=== PATIENT | female | born 1995 | race Caucasian/White ===

== ENCOUNTER 2021-11-10 14:34 | Emergency (ER) | payer SELFPAY ==
[2021-11-10 16:33] LABS: Mucus,Urine FEW /HPF
--- NOTE | 2021-11-10 16:46 | Emergency Department Report ---
ED Dysuria HPI - HPI Chief Complaint: Abdominal Pain Stated Complaint: KIDNEY AND STOMACH PAIN Time Seen by Provider: 11/10/21 16:31 Duration: 2 Days Location of Discomfort: Urethra (dysuria) Severity: Mild Symptoms: Dysuria: Yes, Frequency: Yes, Suprapubic Pain: Yes, Flank Pain: Yes, Fever: No, Hematuria: Yes, Abdominal Pain: No, Previous UTI's: Yes Other History: 26 YO COMES TO ER WITH LEFT SIDE AND BACK PAIN. FREQUENCY. HX UTI. STATES THIS IS HOW IT ALWAYS IS. NO FEVER. NON TOXIC. NO HX K STONES. PAIN NOT CONSISTENT WITH K STONE. NON ILL. NO N/V. AMBULATORY TO ER. HX IRREGULAR MENSES ? REASON ED Review of Systems ROS: Stated complaint: KIDNEY AND STOMACH PAIN Other details as noted in HPI Comment: All other systems reviewed and negative ED Past Medical Hx - Past Medical History Previous Medical History?: Yes Additional medical history: OBESE - Surgical History Past Surgical History?: Yes Additional Surgical History: tonsilectomy - Family History Family history: no significant - Social History Smoking Status: Never Smoker Substance Use Type: None - Medications Home Medications: Home Medications Medication Instructions Recorded Confirmed Last Taken Type Sulfamethoxazole/Trimethoprim 1 each PO BID #10 tablet 11/10/21 Unknown Rx [Bactrim DS TAB] Dysuria Exam - Exam General: Vital signs noted. No distress. Alert and acting appropriately. Exam: Yes Moist Mucous Membranes, No CVA Tenderness, No Abdominal Tenderness, No Rigidity or Guarding Labs: Lab Results 11/10/21 Range/Units Unknown Urine RBC (Auto) 11.0 (0.0-6.0) /HPF U Epithel Cells (Auto) 8.0 (0-13.0) /HPF ED Course Vital Signs 11/10/21 15:33 Temperature 98.2 F Pulse Rate 74 Respiratory 16 Rate Blood Pressure 122/88 [Left] O2 Sat by Pulse 100 Oximetry ED Medical Decision Making - Medical Decision Making Labs 11/10/21 Unknown Urine Color Yellow Urine Turbidity Cloudy Urine pH 6.0 Ur Specific [place] 1.030 Urine Protein 30 mg/dl Urine Glucose (UA) Negative Urine Ketones Negative Urine Blood Moderate A Urine Nitrite Negative Ur Reducing Substances Not Reportable Urine Bilirubin Negative Urine Ictotest Not Reportable Urine Urobilinogen < 2.0 Ur Leukocyte Esterase Trace Urine WBC (Auto) 18.0 H Urine RBC (Auto) 11.0 U Epithel Cells (Auto) 8.0 Urine Mucus Few Vital Signs 11/10/21 15:33 Temperature 98.2 F Pulse Rate 74 Respiratory 16 Rate Blood Pressure 122/88 [Left] O2 Sat by Pulse 100 Oximetry UA NOTED GIVEN 1 GM IM ROCEPHIN MEDICATED FOR PAIN PREG NEG DC HOME WITH DC PLAN OF CARE INCLUDING DIET, MEDS, ACTIVITY AND FOLLOW UP. PT VERBALIZES UNDERSTANDING OF PLAN OF CARE. - Differential Diagnosis RO UTI PREG Critical care attestation.: If time is entered above; I have spent that time in minutes in the direct care of this critically ill patient, excluding procedure time. ED Disposition Clinical Impression: Irregular menses UTI (urinary tract infection) Qualifiers: Urinary tract infection type: site unspecified Hematuria presence: with hematuria Qualified Code(s): N39.0 - Urinary tract infection, site not specified Disposition: 01 HOME / SELF CARE / HOMELESS Is pt being admited?: No Does the pt Need Aspirin: No Condition: Stable Instructions: Abdominal Pain (ED) Additional Instructions: DRINK A LOT OF WATER MOTRIN OR TYLENOL FOR PAIN FOLLOW UP WITH PCP AFTER YOU FINISH ANTIBIOTIC GIVEN TO YOU TODAY REFERRAL BELOW FOLLOW UP WITH OBGYN TO EVALUATE WHY YOUR PERIODS ARE IRREGULAR REFERRAL BELOW Prescriptions: Sulfamethoxazole/Trimethoprim [Bactrim DS TAB] 1 each PO BID #10 tablet Referrals: MARCO MITCHELL MD [Staff Physician] - 3-5 Days NIKKI STRAUSS MD [Staff Physician] - 3-5 Days Forms: Work/School Release Form(ED) Time of Disposition: 16:50
[2021-11-10 16:48] LABS: Bilirubin,Urine Negative (Negative); Blood,Urine Moderate (Negative); Color,Urine Yellow (Yellow); Urobilinogen,Urine < 2.0 mg/dL (<2.0)
[2021-11-10] MEDS ORDERED: LIDOCAINE-MPF (1%) 10 MG/1 ML VIAL 5 ML INFILTRATI ONE (16:49)
[2021-11-10] MEDS ORDERED: IBUPROFEN 800 MG TAB PO ONE (17:01)
[2021-11-10] MEDS ORDERED: PHENAZOPYRIDINE 100 MG TAB PO NR (17:01)
[2021-11-10 17:04] LABS: HCG Qualitative,Urine Negative (Negative)
[2021-11-10 18:09] VITALS: BP 123/86
== END 2021-11-10 18:09 | disposition home or self-care (01) ==
LOC: ED 14:34
DX: N92.6 Irregular menstruation, unspecified (principal); N39.0 Urinary tract infection, site not specified; Z90.89 Acquired absence of other organs; Z79.899 Other long term (current) drug therapy
CPT/HCPCS: 81001; 81025; 87086; 96372; 99283; J0696; J3490